=== PATIENT | male | born 1990 | race Caucasian/White ===

== ENCOUNTER 2021-02-10 07:22 | Emergency (ER) | payer MEDICARE, MEDICAID ==
[~2021-02-10] VITALS: Ht 188 cm; Wt 154.6 kg
[2021-02-10 07:46] VITALS: BP 100/79
[2021-02-10] MEDS ORDERED: LIDOcaine 1% W/epiNEPHrine 1:200,000 10ml vial IJ ONE (11:25)
[2021-02-10] MEDS ORDERED: LIDOcaine 1% w/epiNEPHrine 1:200,000 30ml vial SQ ONE (12:05)
[2021-02-10] MEDS ORDERED: CEPH250T PO (12:31)
[2021-02-10] MEDS ORDERED: DOXY100C76 PO (12:31)
== END 2021-02-10 13:06 | disposition home or self-care (01) ==
LOC: ER 07:23
DX: L02.214 Cutaneous abscess of groin (principal); L03.314 Cellulitis of groin; Z88.2 Allergy status to sulfonamides; Z79.2 Long term (current) use of antibiotics
CPT/HCPCS: 10060; 99283

== ENCOUNTER 2022-09-18 17:23 | Inpatient (IN) | payer MEDICARE, MEDICAID ==
[~2022-09-18] VITALS: Ht 190.5 cm; Wt 134.0 kg
[2022-09-18 18:18] LABS: BASOPHILS % (AUTO) 0.3 % (0-1); EOSINOPHILS # (AUTO) 0.1 X10'3 (0-0.9); EOSINOPHILS % (AUTO) 0.5 % (0-6); HEMATOCRIT 50.3 % (42.0-52.0); HEMOGLOBIN 16.6 g/dl (14.0-17.9); LYMPHOCYTES # (AUTO) 1.7 X10'3 (1.1-4.8); LYMPHOCYTES % (AUTO) 15.6 % (21-51); MEAN CORPUSCULAR HGB CONC 33.1 g/dL (33.0-36.5); MEAN CORPUSCULAR VOLUME 87.6 FL (78-98); MEAN PLATELET VOLUME 8.6 FL (7.4-10.4); MONOCYTES # (AUTO) 1.6 X10'3 (0-0.9); MONOCYTES % (AUTO) 14.1 % (2-12); NEUTROPHILS # (AUTO) 7.7 X10'3 (1.8-7.7); NEUTROPHILS % (AUTO) 69.5 % (42-75); PLATELET COUNT 353 X10'3 (140-440); RED BLOOD COUNT 5.74 X10'6 (4.70-6.10); WHITE BLOOD COUNT 11.1 X10'3 (4.5-11.0)
[2022-09-18 18:35] LABS: ALANINE AMINOTRANSFERASE 36 U/L (12-78); ALBUMIN/GLOBULIN RATIO 0.5 (1.1-1.5); ALKALINE PHOSPHATASE 111 IU/L (46-116); ANION GAP 24 (8-16); ASPARTATE AMINO TRANSFERASE 17 U/L (10-37); BILIRUBIN,TOTAL 0.7 MG/DL (0.1-1.0); BLOOD UREA NITROGEN 12 MG/DL (7-18); BUN/CREATININE RATIO 8.7 (10.0-20.0); CALCIUM 10.3 MG/DL (8.5-10.1); CHLORIDE 99 MMOL/L (99-107); CREATININE 1.38 MG/DL (0.60-1.10); GLUCOSE 411 MG/DL (70-104); POTASSIUM 3.9 MMOL/L (3.5-5.1); SODIUM 133 MMOL/L (135-145); TOTAL PROTEIN 8.9 G/DL (6.4-8.2); eGFR 60 ML/MIN
[2022-09-18 18:47] LABS: TOTAL CARBON DIOXIDE 9.8 MMOL/L (24-32)
[2022-09-18] MEDS ORDERED: acetaminophen 325mg tablet PO ONE (18:55)
[2022-09-18] MEDS ORDERED: iohexol 300mg/ml 100ml inj. ONE (19:11)
[2022-09-18] MEDS ORDERED: CefTRIAXone/D5W-Rocephin 1gm 50 ML IV ONE (19:25)
[2022-09-18] MEDS ORDERED: sodium bicarbonate (8.4%) inj. 50 MEQ in dextrose 5% water 500ml 250 ML IV PRN (19:35)
[2022-09-18] MEDS ORDERED: sodium phosphate inj. 30 MMOL in dextrose 5%-water 250 ML IV PRN (19:35)
[2022-09-18] MEDS ORDERED: sodium phosphate inj. 15 MMOL in dextrose 5%-water 250 ML IV PRN (19:35)
[2022-09-18] MEDS ORDERED: Insulin Reg/NS 100units/100mL 100 ML IV SCH ×2 (19:35→20:30)
[2022-09-18] MEDS ORDERED: Neutra Phos packet PO PRN (19:35)
[2022-09-18] MEDS ORDERED: sodium bicarbonate (8.4%) inj. 100 MEQ in dextrose 5% water 500ml 500 ML IV PRN (19:35)
[2022-09-18] MEDS ORDERED: potassium Cl 40MEQ/1/2NS 520ml 520 ML IV ONE (19:35)
[2022-09-18] MEDS ORDERED: potassium Cl 40MEQ/1/2NS 520ml 520 ML IV PRN ×3 (19:35→20:20)
[2022-09-18] MEDS ORDERED: potassium Cl 20 mEq SR tablet PO PRN ×2 (19:35)
[2022-09-18] MEDS ORDERED: VANCOmycin 1250MG/NS 250ml Bag 250 ML IV ONE ×2 (19:45→20:47)
[2022-09-18] MEDS: normal saline 1000ml 1,000 ML IV SCH ×2 (19:48→20:05)
[2022-09-18] MEDS: K and/or MAG REPLACEMENT MC SCH (20:00)
[2022-09-18] MEDS ORDERED: bisacodyl 10mg suppository rectal RC PRN (20:20)
[2022-09-18] MEDS ORDERED: magnesium 4gm in 100ml NS 100 ML IV PRN (20:20)
[2022-09-18] MEDS ORDERED: ondansetron/PF 4mg/2ml inj IV PRN (20:20)
[2022-09-18] MEDS ORDERED: magnesium 2GM in 50ml NS 50 ML IV PRN (20:20)
[2022-09-18] MEDS ORDERED: mag hydrox/Alum hydrox/simeth 30ml oral suspension PO PRN (20:20)
[2022-09-18] MEDS ORDERED: HYDROcodone/acetaminophen 5mg/325mg tablet PO PRN (20:20)
[2022-09-18] MEDS ORDERED: acetaminophen 325mg tablet PO PRN (20:20)
[2022-09-18] MEDS ORDERED: magnesium hydroxide 30ml (MOM) UD suspension PO PRN (20:20)
[2022-09-18] MEDS ORDERED: magnesium Cl slow-release 64mg tablet PO PRN ×2 (20:20)
[2022-09-18] MEDS ORDERED: diphenhydrAMINE 50 mg/ml inj IV PRN (20:20)
[2022-09-18] MEDS ORDERED: diphenhydrAMINE 25mg capsule PO PRN (20:20)
[2022-09-18] MEDS ORDERED: metoclopramide 5 mg/ml inj IV PRN (20:20)
[2022-09-18] MEDS ORDERED: morphine 2 MG/ML inj. syringe IV PRN ×2 (20:20)
[2022-09-18] MEDS ORDERED: HYDROmorphone inj. 0.5 MG/0.5 ML DISP.SYRIN IV PRN (20:20)
[2022-09-18] MEDS: potassium Cl 20mEq in NS 1,000 ML IV SCH (20:20)
[2022-09-18] MEDS ORDERED: acetaminophen 650mg rectal suppository RC PRN (20:20)
[2022-09-18] MEDS ORDERED: HYDROcodone/acetaminophen 10/325mg tab PO PRN (20:20)
[2022-09-18] MEDS ORDERED: dextrose 50%-water 50ml dispensing syringe IV PRN (20:30)
[2022-09-18] MEDS ORDERED: VANCOmycin 1250MG/NS 250ml Bag 250 ML IV SCH (20:45)
[2022-09-18 21:00] LABS: ANION GAP 23 (8-16); BLOOD UREA NITROGEN 12 MG/DL (7-18); CALCIUM 10.2 MG/DL (8.5-10.1); CHLORIDE 97 MMOL/L (99-107); GLUCOSE 390 MG/DL (70-104); PHOSPHORUS 2.5 MG/DL (2.3-4.5); SODIUM 134 MMOL/L (135-145); eGFR 54 ML/MIN
[2022-09-18] MEDS ORDERED: temazepam 15mg capsule PO PRN (21:00)
[2022-09-18] MEDS: pantoprazole 40MG/NS 100ML BAG 100 ML IV SCH (21:00)
[2022-09-18] MEDS ORDERED: LIDOCAINE 2%/EPI 1:100,000 inj. Multi-dose 20 ML VIAL SQ ONE (21:10)
[2022-09-18 21:11] LABS: CREATINE KINASE 34 U/L (39-308); LIPASE 106 U/L (73-393)
[2022-09-18 21:13] LABS: HEMOGLOBIN A1C 11.9 % (4.5-6.2)
[2022-09-18 21:15] LABS: APTT 29 SECONDS (22-32)
[2022-09-18] MEDS ORDERED: DOXY-224 PO (21:48)
[2022-09-18] MEDS ORDERED: ARIP15TA3 PO (21:48)
[2022-09-18] MEDS ORDERED: LOSA50TA64 PO (21:48)
[2022-09-18] MEDS ORDERED: CHOL500050 PO (21:48)
--- NOTE | 2022-09-18 22:00 | NUR ---
PATIENT PLACED ON A HOSPITAL BED
[2022-09-18 22:04] LABS: CLARITY,URINE CLEAR (Clear); COLOR,URINE YELLOW (Yellow); GLUCOSE, URINE 500 mg/dl (Neg); KETONES,URINE >=80 mg/dl (Neg); LEUKOCYTE ESTERASE ,URINE NEGATIVE (Neg); NITRITES, URINE NEGATIVE (Neg); OCCULT BLOOD,URINE TRACE-INTACT (Neg); PROTEIN,URINE 30 mg/dl (Neg); UROBILINOGEN,URINE 0.2 E.U/dL (0.2-1.0)
[2022-09-18 22:08] LABS: UA COLLECTION TYPE CLN CATCH MIDSTREAM
[2022-09-18 22:09] LABS: SQUAMOUS EPITHELIAL CELL,UR NONE SEEN /LPF (FEW)
[2022-09-18 22:10] LABS: BACTERIA,URINE NONE SEEN /HPF (Neg); RBC,URINE 0-2 /HPF (0-2); WBC,URINE 0-4 /HPF (0-4)
[2022-09-18 22:16] LABS: URINE AMPHETAMINE SCREEN NEGATIVE (Neg); URINE BARBITUATE SCREEN NEGATIVE (Neg); URINE BENZODIAZEPINES SCREEN NEGATIVE (Neg); URINE CANNABINOID SCREEN NEGATIVE (Neg); URINE COCAINE SCREEN NEGATIVE (Neg); URINE METHADONE SCREEN NEGATIVE (Neg); URINE OPIATE SCREEN NEGATIVE (Neg); URINE PHENCYCLIDINE SCREEN NEGATIVE (Neg)
[2022-09-19] MEDS ORDERED: dextrose 5%-1/2 normal saline 1,000 ML IV ONE (00:10)
[2022-09-19 00:12] LABS: ALBUMIN 2.4 G/DL (3.4-5.0); ANION GAP 18 (8-16); BLOOD UREA NITROGEN 11 MG/DL (7-18); BUN/CREATININE RATIO 8.7 (10.0-20.0); CALCIUM 8.7 MG/DL (8.5-10.1); CHLORIDE 102 MMOL/L (99-107); CREATININE 1.27 MG/DL (0.60-1.10); GLUCOSE 276 MG/DL (70-104); PHOSPHORUS 1.7 MG/DL (2.3-4.5); POTASSIUM 4.3 MMOL/L (3.5-5.1); SODIUM 135 MMOL/L (135-145); eGFR 66 ML/MIN
[2022-09-19 00:17] LABS: TOTAL CARBON DIOXIDE 14.6 MMOL/L (24-32)
[2022-09-19] MEDS: piperacillin/tazo 4.5gm/100ml 100 ML IV SCH ×3 (01:29→16:27)
[2022-09-19 03:42] LABS: BASOPHILS % (AUTO) 0.4 % (0-1); EOSINOPHILS # (AUTO) 0.1 X10'3 (0-0.9); EOSINOPHILS % (AUTO) 1.1 % (0-6); HEMATOCRIT 41.2 % (42.0-52.0); LYMPHOCYTES # (AUTO) 1.2 X10'3 (1.1-4.8); LYMPHOCYTES % (AUTO) 15.9 % (21-51); MEAN CORPUSCULAR HEMOGLOBIN 29.3 PG (27.0-31.0); MEAN CORPUSCULAR HGB CONC 33.8 g/dL (33.0-36.5); MEAN CORPUSCULAR VOLUME 86.5 FL (78-98); MONOCYTES # (AUTO) 1.2 X10'3 (0-0.9); MONOCYTES % (AUTO) 15.4 % (2-12); NEUTROPHILS # (AUTO) 5.2 X10'3 (1.8-7.7); NEUTROPHILS % (AUTO) 67.2 % (42-75); PLATELET COUNT 252 X10'3 (140-440); RED BLOOD COUNT 4.77 X10'6 (4.70-6.10); RED CELL DISTRIBUTION WIDTH 14.9 % (11.5-14.5); WHITE BLOOD COUNT 7.8 X10'3 (4.5-11.0)
[2022-09-19 04:03] LABS: ALANINE AMINOTRANSFERASE 25 U/L (12-78); ALBUMIN 2.2 G/DL (3.4-5.0); ALBUMIN/GLOBULIN RATIO 0.5 (1.1-1.5); ALKALINE PHOSPHATASE 80 IU/L (46-116); ANION GAP 13 (8-16); ASPARTATE AMINO TRANSFERASE 14 U/L (10-37); BILIRUBIN,TOTAL 0.5 MG/DL (0.1-1.0); BLOOD UREA NITROGEN 10 MG/DL (7-18); BUN/CREATININE RATIO 8.1 (10.0-20.0); CALCIUM 8.7 MG/DL (8.5-10.1); CHLORIDE 102 MMOL/L (99-107); CHOL/HDL RATIO 4.6 (0.00-4.99); CHOLESTEROL 166 MG/DL (0-200); CREATININE 1.23 MG/DL (0.60-1.10); GLUCOSE 236 MG/DL (70-104); HDL CHOLESTEROL 36 MG/DL (35-60); LDL CHOLESTEROL 99 MG/DL (50-100); MAGNESIUM 1.7 MG/DL (1.5-2.4); PHOSPHORUS 1.9 MG/DL (2.3-4.5); POTASSIUM 3.4 MMOL/L (3.5-5.1); SODIUM 134 MMOL/L (135-145); TOTAL PROTEIN 6.7 G/DL (6.4-8.2); TRIGLYCERIDES 118 MG/DL (20-135); eGFR 68 ML/MIN
[2022-09-19 04:09] LABS: TOTAL CELLS COUNTED 100
[2022-09-19 04:10] LABS: PLATELET ESTIMATE NORMAL
[2022-09-19] MEDS ORDERED: MESSAGE TO PHARMACY PO ONE (04:40)
[2022-09-19] MEDS ORDERED: DEXTROSE 15 GM of carb/4 tabs (each vial/BOTTLE has 4 tablets) PO PRN ×4 (04:40→08:55)
[2022-09-19] MEDS ORDERED: glucagon, human recombinant 1mg kit SUBCUT PRN ×2 (04:40→08:55)
[2022-09-19] MEDS ORDERED: dextrose 50%-water 50ml dispensing syringe IV PRN ×4 (04:40→08:55)
[2022-09-19 07:48] VITALS: BP 126/62
--- NOTE | 2022-09-19 07:50 | NUR ---
Patient in room U 3018. I have received report from Bashir SNYDER and had the opportunity to ask questions and assume patient care.bedside report completed. Pt orientated to room. Call light in reach. Addendum: 09/19/22 at 0750 by Joie Proctor RN Amended: Links added.
[2022-09-19] MEDS: K and/or MAG REPLACEMENT MC SCH ×4 (08:00→20:00)
[2022-09-19] MEDS: docusate sod 100mg capsule PO SCH ×2 (08:00→19:35)
[2022-09-19] MEDS ORDERED: VANCOmycin 1250MG/NS 250ml Bag 250 ML IV SCH (09:00)
[2022-09-19] MEDS: insulin Lispro (HumaLOG) vial - multi-dose SQ SCH ×3 (09:12→19:34)
[2022-09-19] MEDS: pantoprazole 40MG/NS 100ML BAG 100 ML IV SCH (09:13)
[2022-09-19] MEDS: vancomycin/NS 1 GM ADD-VANTAGE 250 ML IV SCH ×3 (09:37→23:17)
--- NOTE | 2022-09-19 09:52 | NUR ---
DM consult: Per H&P pt admit for right gluteal/scrotal abscess/cellulitis, DKA with new onset T2DM, and MELE with hyponatremia. Current A1c is 11.9%. Pt just admit to the floor this morning and to get and I&D of the abscess per H&P. Pt would benefit from DM education once appropriate. Diet has been advanced to CHO controlled, pending documentation of PO intake. No documented BM, pt receiving routine bowel care. Will continue to follow closely. Recommendations: 1) Continue CHO controlled diet 2) Monitor need for ONS/additional protein 3) Routine bowel care 4) Scaled weight this admit; subsequent weekly scaled weights 5) DM education as appropriate; with DKA and new onset T2DM on admit with A1c 11.9% Addendum: 09/19/22 at [address] Amended: Links added.
[2022-09-19 11:00] VITALS: BP 122/61
[2022-09-19] MEDS ORDERED: HYDROcodone/acetaminophen 5mg/325mg tablet PO PRN (13:10)
--- NOTE | 2022-09-19 13:10 | NUR ---
DM consult: Patient's A1c has already been addressed, please see prior RD note. Addendum: 09/19/22 at [address] Amended: Links added.
[2022-09-19] MEDS: HYDROcodone/acetaminophen 10/325mg tab PO PRN ×2 (14:08→19:35)
[2022-09-19] MEDS: potassium Cl 20mEq in NS 1,000 ML IV SCH ×2 (14:37→16:20)
[2022-09-19 15:43] VITALS: BP 117/59
[2022-09-19] MEDS: acetaminophen 325mg tablet PO PRN (16:43)
[2022-09-19 18:00] VITALS: BP 122/60
--- NOTE | 2022-09-19 18:20 | NUR ---
Patient in room PCU 3018. I have received report from Joie SNYDER and had the opportunity to ask questions and assume patient care.
--- NOTE | 2022-09-19 18:30 | NUR ---
Problems reprioritized. Patient report given, questions answered & plan of care reviewed with Sandra SNYDER. Bedside report completed. Pt eating and watching TV. Call light in reach. Addendum: 09/19/22 at 1831 by Joie Proctor RN Amended: Links added.
[2022-09-19] MEDS: insulin glargine (Lantus) pen - multi-dose SQ SCH ×2 (21:00→21:49)
[2022-09-19 22:00] VITALS: BP 114/61
[2022-09-19] MEDS: losartan 50mg tablet PO SCH (22:02)
[2022-09-19] MEDS: ARIPIPRAZOLE 15 MG TABLET PO SCH (22:04)
[2022-09-20] VITALS (10 sets, daily range): BP systolic 91–136; BP diastolic 43–80
[2022-09-20] MEDS: piperacillin/tazo 4.5gm/100ml 100 ML IV SCH ×2 (02:34→07:13)
[2022-09-20] MEDS: potassium Cl 20mEq in NS 1,000 ML IV SCH ×3 (02:58→23:29)
--- NOTE | 2022-09-20 03:48 | NUR ---
REVIEWED YARD DRIVER ASSESSMENT AND IN AGREEMENT.
--- NOTE | 2022-09-20 06:15 | NUR ---
Patient in room PCU 3018. I have received report from Sandra FARMER and had the opportunity to ask questions and assume patient care. Bedside report completed. Pt denies needs. Call light in reach. Addendum: 09/20/22 at 0636 by Joie Proctor RN Amended: Links added.
--- NOTE | 2022-09-20 06:19 | NUR ---
Problems reprioritized. Patient report given, questions answered & plan of care reviewed with Joie SNYDER.
[2022-09-20] MEDS ORDERED: VANCOMYCIN LEVEL IV ONE (06:30)
[2022-09-20 07:10] LABS: BASOPHILS % (AUTO) 0.5 % (0-1); EOSINOPHILS # (AUTO) 0.1 X10'3 (0-0.9); EOSINOPHILS % (AUTO) 2.4 % (0-6); HEMATOCRIT 36.8 % (42.0-52.0); HEMOGLOBIN 12.6 g/dl (14.0-17.9); LYMPHOCYTES # (AUTO) 1.4 X10'3 (1.1-4.8); LYMPHOCYTES % (AUTO) 24.1 % (21-51); MEAN CORPUSCULAR HEMOGLOBIN 29.2 PG (27.0-31.0); MEAN CORPUSCULAR HGB CONC 34.2 g/dL (33.0-36.5); MEAN CORPUSCULAR VOLUME 85.2 FL (78-98); MEAN PLATELET VOLUME 8.2 FL (7.4-10.4); MONOCYTES % (AUTO) 16.8 % (2-12); NEUTROPHILS # (AUTO) 3.2 X10'3 (1.8-7.7); NEUTROPHILS % (AUTO) 56.2 % (42-75); PLATELET COUNT 213 X10'3 (140-440); RED BLOOD COUNT 4.31 X10'6 (4.70-6.10); RED CELL DISTRIBUTION WIDTH 14.5 % (11.5-14.5); WHITE BLOOD COUNT 5.7 X10'3 (4.5-11.0)
[2022-09-20] MEDS: pantoprazole 40mg Tablet.DR PO SCH (07:11)
[2022-09-20] MEDS: HYDROcodone/acetaminophen 10/325mg tab PO PRN ×3 (07:11→22:16)
[2022-09-20] MEDS: cholecalciferol (vitamin D3) 1,000 unit (25mcg) tablet PO SCH (07:12)
[2022-09-20] MEDS: docusate sod 100mg capsule PO SCH ×2 (07:12→20:00)
[2022-09-20] MEDS: vancomycin/NS 1 GM ADD-VANTAGE 250 ML IV SCH (07:13)
[2022-09-20 07:22] LABS: ALANINE AMINOTRANSFERASE 21 U/L (12-78); ALBUMIN/GLOBULIN RATIO 0.5 (1.1-1.5); ALKALINE PHOSPHATASE 67 IU/L (46-116); ANION GAP 12 (8-16); ASPARTATE AMINO TRANSFERASE 25 U/L (10-37); BILIRUBIN,TOTAL 0.5 MG/DL (0.1-1.0); BLOOD UREA NITROGEN 7 MG/DL (7-18); CALCIUM 8.3 MG/DL (8.5-10.1); CHLORIDE 99 MMOL/L (99-107); CREATININE 0.87 MG/DL (0.60-1.10); GLUCOSE 251 MG/DL (70-104); MAGNESIUM 1.6 MG/DL (1.5-2.4); PHOSPHORUS 2.2 MG/DL (2.3-4.5); POTASSIUM 3.1 MMOL/L (3.5-5.1); SODIUM 133 MMOL/L (135-145); TOTAL CARBON DIOXIDE 22.1 MMOL/L (24-32); TOTAL PROTEIN 6.1 G/DL (6.4-8.2); VANCOMYCIN,TROUGH 7.5 UG/ML (6.0-14.0); eGFR > 90 ML/MIN
[2022-09-20] MEDS: K and/or MAG REPLACEMENT MC SCH ×4 (08:00→20:00)
[2022-09-20] MEDS: potassium Cl 20 mEq SR tablet PO PRN ×3 (08:39→23:23)
[2022-09-20] MEDS: insulin Lispro (HumaLOG) vial - multi-dose SQ SCH (08:41)
[2022-09-20 09:22] LABS: PLATELET ESTIMATE NORMAL; TOTAL CELLS COUNTED 100
[2022-09-20] MEDS ORDERED: LORazepam 1 MG tablet PO ONE (11:15)
--- NOTE | 2022-09-20 14:45 | NUR ---
Pt down to OR
[2022-09-20] MEDS ORDERED: dibucaine ointment 28gm RC ONE (15:41)
[2022-09-20] MEDS ORDERED: LIDOcaine 1% W/epiNEPHrine 1:100,000 20ml vial ONE (15:42)
[2022-09-20] MEDS ORDERED: ringers solution, lacted 1,000 ML IV SCH (16:25)
[2022-09-20] MEDS ORDERED: morphine 4 MG/ML inj SYRINge IV PRN (16:25)
[2022-09-20] MEDS ORDERED: hydrALAZINE 20mg/ml inj. IV PRN (16:25)
[2022-09-20] MEDS ORDERED: HYDROmorphone/PF 0.2 MG/ML SYRINGE IV PRN ×2 (16:25)
[2022-09-20] MEDS ORDERED: acetaminophen 1,000mg/100ml IV 100 ML IV PRN (16:25)
[2022-09-20] MEDS ORDERED: morphine 2 MG/ML inj. syringe IV PRN (16:25)
[2022-09-20] MEDS ORDERED: meperidine/PF 25mg/ml syringe IV PRN (16:25)
[2022-09-20] MEDS ORDERED: labetalol 20mg/4ml (5mg/ml) syringe IV PRN (16:25)
[2022-09-20] MEDS ORDERED: proCHLORperazine 10 MG/2 ml inj IV PRN (16:25)
[2022-09-20] MEDS ORDERED: ondansetron/PF 4mg/2ml inj IV PRN (16:25)
[2022-09-20] MEDS ORDERED: sevoflurane 250ml liquid IH ONE (16:32)
[2022-09-20] MEDS ORDERED: ondansetron/PF 4mg/2ml inj ONE (16:32)
[2022-09-20] MEDS: VANCOMYCIN 1,500MG in normal saline IV soln 300 ML IV SCH ×2 (16:36→23:25)
[2022-09-20] MEDS ORDERED: midazolam 1 mg/ML 2ml injection ONE (16:39)
[2022-09-20] MEDS ORDERED: fentaNYL /PF 50mcg/ml 5ml ampule ONE (16:40)
[2022-09-20] MEDS ORDERED: rocuronium 10mg/ml inj IV ONE (17:05)
[2022-09-20] MEDS ORDERED: succinylcholine 20mg/ml inj IV ONE (17:05)
[2022-09-20] MEDS ORDERED: propofol inj 20 ML IV ONE ×2 (17:05)
[2022-09-20] MEDS ORDERED: LIDOcaine 1%/PF 5ML 10 MG/ML VIAL ONE ×2 (17:05)
[2022-09-20] MEDS ORDERED: albuterol 60 PUFF/8GM Inhaler (90mcg/1 puff) IH ONE (17:20)
--- NOTE | 2022-09-20 17:24 | NUR ---
Received from OR via MED SURG BED , accompanied by Anesthesiologist JULEE and report given by Anesthesiolgist. PATIENT WITH 20G PIV IN LEFT UE AND 22G PIV IN RIGHT UE THAT IS SL. DRESSING UNDER MESH PANTIES PRESENT WITH NO DRAINAGE PRESENT AT THIS TIME. DENIES PAIN. Addendum: 09/20/22 at 1743 by Grady Jarrett RN, RN Amended: Links added.
--- NOTE | 2022-09-20 18:14 | NUR ---
PATIENT VSS. PAIN "TOLERABLE' ACCORDING TO PT. DRESSING WITH MESH UNDERWEAR WITH GAUZE PRESENT, SHADOWING ON DRESSING. PATIENT TRANSPORTED IN BED. LILLIAN CAMPOVERDE PRESENT TO ACCEPT CARE OF PATIENT. CALL LIGHT PRESENT AND POSITIONED TO COMFORT. Addendum: 09/20/22 at 1821 by Grady Jarrett RN, RN Amended: Links added.
--- NOTE | 2022-09-20 18:30 | NUR ---
Problems reprioritized. Patient report given, questions answered & plan of care reviewed with Rhonda SNYDER. Pt eating dinner.. Addendum: 09/20/22 at 1852 by Joie Proctor RN Amended: Links added.
[2022-09-20] MEDS: heparin, porcine 5000 units/ml vial SQ SCH (20:00)
[2022-09-20] MEDS: insulin glargine (Lantus) pen - multi-dose SQ SCH ×2 (21:00→22:34)
[2022-09-20] MEDS: losartan 50mg tablet PO SCH (21:00)
[2022-09-20] MEDS: ARIPIPRAZOLE 15 MG TABLET PO SCH (22:16)
[2022-09-21] VITALS (7 sets, daily range): BP systolic 111–147; BP diastolic 73–86
[2022-09-21] MEDS: piperacillin/tazo 4.5gm/100ml 100 ML IV SCH ×2 (00:57→09:59)
[2022-09-21] MEDS: potassium Cl 20 mEq SR tablet PO PRN ×3 (04:42→18:52)
--- NOTE | 2022-09-21 05:00 | NUR ---
Pt. is awake alert oriented talkative S/p I/D to right buttock. Dressing is saturated with bright red drainage. Reinforced dressing as needed. Peripheral pedal pulses palpable SCDs placed. Pt. has 2 peripheral IVs. NS plus 20 kcl infusing. Pt. is eating and tolerating po fluids will decrease IV fluid rate. Medicated for pain as needed. States buttock feels much better post operatively. Pt. voids per urinal lizzy clear mod amt. Plan monitor dressing for increased drainage.
[2022-09-21 07:13] LABS: BASOPHILS % (AUTO) 0.5 % (0-1); EOSINOPHILS # (AUTO) 0.2 X10'3 (0-0.9); EOSINOPHILS % (AUTO) 2.8 % (0-6); HEMATOCRIT 36.8 % (42.0-52.0); HEMOGLOBIN 12.6 g/dl (14.0-17.9); LYMPHOCYTES # (AUTO) 1.4 X10'3 (1.1-4.8); LYMPHOCYTES % (AUTO) 26.5 % (21-51); MEAN CORPUSCULAR HGB CONC 34.1 g/dL (33.0-36.5); MEAN PLATELET VOLUME 7.9 FL (7.4-10.4); MONOCYTES % (AUTO) 18.7 % (2-12); NEUTROPHILS # (AUTO) 2.8 X10'3 (1.8-7.7); NEUTROPHILS % (AUTO) 51.5 % (42-75); PLATELET COUNT 220 X10'3 (140-440); RED BLOOD COUNT 4.33 X10'6 (4.70-6.10); RED CELL DISTRIBUTION WIDTH 14.5 % (11.5-14.5); WHITE BLOOD COUNT 5.4 X10'3 (4.5-11.0)
[2022-09-21 07:29] LABS: ALANINE AMINOTRANSFERASE 21 U/L (12-78); ALBUMIN/GLOBULIN RATIO 0.5 (1.1-1.5); ALKALINE PHOSPHATASE 67 IU/L (46-116); ANION GAP 10 (8-16); ASPARTATE AMINO TRANSFERASE 26 U/L (10-37); BILIRUBIN,TOTAL 0.4 MG/DL (0.1-1.0); BLOOD UREA NITROGEN 8 MG/DL (7-18); BUN/CREATININE RATIO 9.6 (10.0-20.0); CALCIUM 8.6 MG/DL (8.5-10.1); CHLORIDE 100 MMOL/L (99-107); CREATININE 0.83 MG/DL (0.60-1.10); GLUCOSE 207 MG/DL (70-104); MAGNESIUM 1.7 MG/DL (1.5-2.4); SODIUM 138 MMOL/L (135-145); TOTAL CARBON DIOXIDE 28.1 MMOL/L (24-32); TOTAL PROTEIN 6.2 G/DL (6.4-8.2); eGFR > 90 ML/MIN
[2022-09-21] MEDS: VANCOMYCIN 1,500MG in normal saline IV soln 300 ML IV SCH ×2 (07:29→15:12)
[2022-09-21] MEDS: K and/or MAG REPLACEMENT MC SCH ×3 (08:00→20:07)
[2022-09-21] MEDS: potassium Cl 20mEq in NS 1,000 ML IV SCH ×2 (08:20→18:51)
--- NOTE | 2022-09-21 08:24 | NUR ---
Paged Page Sent PAGER ID: [phone] MESSAGE: [id number]- Rodrigo- Pt K 3.0 this morning. Yesterday 3.1. Pt currently on KCL 20MEQ/1000ml. Do you want to continue current KCL order? Kleber Osorio LVN
[2022-09-21] MEDS: cholecalciferol (vitamin D3) 1,000 unit (25mcg) tablet PO SCH (09:00)
[2022-09-21] MEDS: docusate sod 100mg capsule PO SCH ×2 (09:00→20:00)
[2022-09-21] MEDS: heparin, porcine 5000 units/ml vial SQ SCH ×2 (09:03→20:09)
[2022-09-21] MEDS: insulin Lispro (HumaLOG) vial - multi-dose SQ SCH ×2 (09:07→13:50)
[2022-09-21] MEDS: pantoprazole 40mg Tablet.DR PO SCH (09:21)
[2022-09-21] MEDS: HYDROcodone/acetaminophen 10/325mg tab PO PRN (12:11)
[2022-09-21 13:13] LABS: HBSAG SCREEN Negative (Negative); HEP B CORE AB, TOT Negative (Negative)
--- NOTE | 2022-09-21 13:17 | NUR ---
F/u: Attempted visit with pt at bedside for DM education however pt unavailable. Will attempt education at another time. Addendum: 09/21/22 at [address] Amended: Links added.
[2022-09-21] MEDS: ondansetron 4mg rapidly disintigrating tab PO PRN ×2 (13:45→20:10)
--- NOTE | 2022-09-21 13:56 | NUR ---
Wound reinforced with 4x4 gauze and abd pad. Addendum: 09/21/22 at 1357 by Kleber Osorio LVN Amended: Links added.
[2022-09-21] MEDS ORDERED: VANCOMYCIN LEVEL IV ONE (14:30)
[2022-09-21] MEDS: ceFAZolin/D5W- 1GM premix 50 ML IV SCH ×2 (16:37→23:13)
--- NOTE | 2022-09-21 18:36 | NUR ---
Problems reprioritized. Patient report given, questions answered & plan of care reviewed with Rhonda RN.
--- NOTE | 2022-09-21 18:51 | NUR ---
RESORT KEEPER II documentation: I have reviewed and agree WITH THE assessment documented by MARLENY COREA II.
[2022-09-21] MEDS: losartan 50mg tablet PO SCH (20:09)
[2022-09-21] MEDS: ARIPIPRAZOLE 15 MG TABLET PO SCH (20:09)
[2022-09-21] MEDS: insulin glargine (Lantus) pen - multi-dose SQ SCH (21:51)
[2022-09-21] MEDS ORDERED: vancomycin 1,750 MG in NS 350ml IV soln IV SCH (23:00)
[2022-09-22 03:00] VITALS: BP 134/83
--- NOTE | 2022-09-22 04:25 | NUR ---
Pt. is awake alert oriented and in good sp Addendum: 09/22/22 at 0433 by Khadijah Muir RN Pt. is awake alert oriented and in good spirits. No c/o pain today. Pt. has 2 peripheral IV/SL NS KCL infusing well. Pt. c/o increasingly swollen legs SCDs applied. Pt. is taking po fluids, po potassium and nutrition well. Pt. voids per urinal yellow clear. Right groin wound dressing is dry and intact. Left buttock I/D site with packing intact, incision appears smaller today. Reinforced dressing as needed. Firm warm areas noted at left buttock and frenulum. Plan for potential wound vac or incision protector.
--- NOTE | 2022-09-22 06:59 | NUR ---
Patient in room PCU 3018. I have received report from Khadijah Ivy and had the opportunity to ask questions and assume patient care. Pt awake and in bed. No signs of distress. Call light within reach. BLL.
--- NOTE | 2022-09-22 07:01 | NUR ---
Patient in room PCU 3018J. I have received report from Rhonda SNYDER and had the opportunity to ask questions and assume patient care. Pt laying on R side of body watching TV. Pt on RA. No s/s of distress, or c/o pain. Pt reciving K 20meq in 1000ml running @ 100ml/hr. NO c/o pain to the site. BLL, call light within reach, frequently used items in reach, frequent rounding, soda column operator socks on. Will continue to monitor.
[2022-09-22 07:02] LABS: ALANINE AMINOTRANSFERASE 24 U/L (12-78); ALBUMIN/GLOBULIN RATIO 0.4 (1.1-1.5); ALKALINE PHOSPHATASE 65 IU/L (46-116); ANION GAP 9 (8-16); ASPARTATE AMINO TRANSFERASE 41 U/L (10-37); BILIRUBIN,TOTAL 0.4 MG/DL (0.1-1.0); BLOOD UREA NITROGEN 5 MG/DL (7-18); BUN/CREATININE RATIO 8.5 (10.0-20.0); CALCIUM 8.9 MG/DL (8.5-10.1); CHLORIDE 102 MMOL/L (99-107); CREATININE 0.59 MG/DL (0.60-1.10); GLUCOSE 217 MG/DL (70-104); MAGNESIUM 1.8 MG/DL (1.5-2.4); POTASSIUM 3.4 MMOL/L (3.5-5.1); SODIUM 139 MMOL/L (135-145); TOTAL CARBON DIOXIDE 28.2 MMOL/L (24-32); TOTAL PROTEIN 6.6 G/DL (6.4-8.2); eGFR > 90 ML/MIN
[2022-09-22 07:04] LABS: BASOPHILS % (AUTO) 0.5 % (0-1); EOSINOPHILS # (AUTO) 0.1 X10'3 (0-0.9); EOSINOPHILS % (AUTO) 2.6 % (0-6); HEMOGLOBIN 12.6 g/dl (14.0-17.9); LYMPHOCYTES # (AUTO) 1.5 X10'3 (1.1-4.8); LYMPHOCYTES % (AUTO) 27.5 % (21-51); MEAN CORPUSCULAR HEMOGLOBIN 28.8 PG (27.0-31.0); MEAN CORPUSCULAR VOLUME 84.6 FL (78-98); MEAN PLATELET VOLUME 8.4 FL (7.4-10.4); MONOCYTES % (AUTO) 17.5 % (2-12); NEUTROPHILS # (AUTO) 2.9 X10'3 (1.8-7.7); NEUTROPHILS % (AUTO) 51.9 % (42-75); PLATELET COUNT 219 X10'3 (140-440); RED BLOOD COUNT 4.37 X10'6 (4.70-6.10); RED CELL DISTRIBUTION WIDTH 14.3 % (11.5-14.5); WHITE BLOOD COUNT 5.6 X10'3 (4.5-11.0)
[2022-09-22] MEDS: heparin, porcine 5000 units/ml vial SQ SCH ×2 (07:43→19:25)
[2022-09-22 07:44] VITALS: BP 135/85
[2022-09-22] MEDS: docusate sod 100mg capsule PO SCH ×2 (07:46→19:24)
[2022-09-22] MEDS: cholecalciferol (vitamin D3) 1,000 unit (25mcg) tablet PO SCH (07:47)
[2022-09-22] MEDS: pantoprazole 40mg Tablet.DR PO SCH (07:47)
[2022-09-22] MEDS: ceFAZolin/D5W- 1GM premix 50 ML IV SCH ×2 (07:48→17:38)
[2022-09-22] MEDS: potassium Cl 20mEq in NS 1,000 ML IV SCH ×2 (07:49→17:28)
[2022-09-22] MEDS: K and/or MAG REPLACEMENT MC SCH ×2 (08:00→19:12)
[2022-09-22 08:28] LABS: TOTAL CELLS COUNTED 100
[2022-09-22 08:29] LABS: PLATELET ESTIMATE NORMAL; POLYCHROMASIA FEW; TOXIC GRANULATION 1+
[2022-09-22] MEDS: insulin Lispro (HumaLOG) vial - multi-dose SQ SCH ×3 (09:29→14:20)
[2022-09-22] MEDS: HYDROcodone/acetaminophen 10/325mg tab PO PRN ×2 (09:36→17:28)
[2022-09-22 11:00] VITALS: BP 143/84
--- NOTE | 2022-09-22 11:31 | NUR ---
F/u 09/22: Pt seen by RD for written/verbal DM and verbal high protein diet eds w/ RD contact information provided. RD encouraged pt to contact dietitian's office if further nutrition questions/concerns. Pt advanced to carb controlled diet PO ~100% most initial meals s/p I&D R perirectal abscess 09/20 per EMR. Partially meeting estimated needs given large stature and wound healing. Pt is agreeable to peach Robb smoothie BIDBD for wound healing; notified. LBM 09/19 receiving routine colace. Will continue to follow. Recommendations: 1) Continue CHO controlled diet 2) Sanders Robb smoothie BIDBD for wound healing; pending physician verification in EMR 3) Routine bowel care 4) Scaled weight this admit; subsequent weekly scaled weights Addendum: 09/22/22 at [address] Amended: Links added.
[2022-09-22 15:00] VITALS: BP 139/79
--- NOTE | 2022-09-22 15:53 | NUR ---
PAGER ID: [phone] MESSAGE: Nik Wallace [id number] May I have an order for K replacement protocol? Odalys [id number]
[2022-09-22] MEDS ORDERED: JUVEN Smoothie Arginine/Glut./Ca2+Bmb (Juven 19.3pkt) 240ml cup PO SCH (17:30)
[2022-09-22] MEDS ORDERED: magnesium 4gm in 100ml NS 100 ML IV PRN (18:35)
[2022-09-22] MEDS ORDERED: potassium Cl 40MEQ/1/2NS 520ml 520 ML IV PRN (18:35)
[2022-09-22] MEDS ORDERED: potassium Cl 20 mEq SR tablet PO PRN ×2 (18:35)
--- NOTE | 2022-09-22 18:43 | NUR ---
Problems reprioritized. Patient report given, questions answered & plan of care reviewed with Ness SNYDER. Pt resting comfortably in bed. BLL. call light with in reach.
[2022-09-22] MEDS: ARIPIPRAZOLE 15 MG TABLET PO SCH (19:24)
[2022-09-22] MEDS: losartan 50mg tablet PO SCH (19:24)
[2022-09-22] MEDS: insulin glargine (Lantus) pen - multi-dose SQ SCH (21:00)
[2022-09-23] MEDS: potassium Cl 20mEq in NS 1,000 ML IV SCH ×2 (00:20→12:42)
[2022-09-23] MEDS: ceFAZolin/D5W- 1GM premix 50 ML IV SCH ×2 (00:51→07:31)
[2022-09-23] MEDS: HYDROcodone/acetaminophen 10/325mg tab PO PRN (00:52)
[2022-09-23] MEDS: acetaminophen 325mg tablet PO PRN (04:22)
[2022-09-23 04:27] LABS: BASOPHILS % (AUTO) 0.5 % (0-1); EOSINOPHILS # (AUTO) 0.2 X10'3 (0-0.9); EOSINOPHILS % (AUTO) 3.1 % (0-6); HEMATOCRIT 37.1 % (42.0-52.0); HEMOGLOBIN 12.6 g/dl (14.0-17.9); LYMPHOCYTES # (AUTO) 1.6 X10'3 (1.1-4.8); LYMPHOCYTES % (AUTO) 27.1 % (21-51); MEAN CORPUSCULAR HEMOGLOBIN 28.8 PG (27.0-31.0); MEAN CORPUSCULAR HGB CONC 33.8 g/dL (33.0-36.5); MEAN CORPUSCULAR VOLUME 85.2 FL (78-98); MEAN PLATELET VOLUME 8.1 FL (7.4-10.4); MONOCYTES % (AUTO) 17.6 % (2-12); NEUTROPHILS % (AUTO) 51.7 % (42-75); PLATELET COUNT 199 X10'3 (140-440); RED BLOOD COUNT 4.36 X10'6 (4.70-6.10); RED CELL DISTRIBUTION WIDTH 14.1 % (11.5-14.5); WHITE BLOOD COUNT 5.8 X10'3 (4.5-11.0)
[2022-09-23 04:53] LABS: ALANINE AMINOTRANSFERASE 27 U/L (12-78); ALBUMIN 2.1 G/DL (3.4-5.0); ALBUMIN/GLOBULIN RATIO 0.5 (1.1-1.5); ALKALINE PHOSPHATASE 63 IU/L (46-116); ANION GAP 6 (8-16); ASPARTATE AMINO TRANSFERASE 38 U/L (10-37); BILIRUBIN,TOTAL 0.3 MG/DL (0.1-1.0); BLOOD UREA NITROGEN 5 MG/DL (7-18); BUN/CREATININE RATIO 11.4 (10.0-20.0); CALCIUM 8.7 MG/DL (8.5-10.1); CHLORIDE 101 MMOL/L (99-107); CREATININE 0.44 MG/DL (0.60-1.10); GLUCOSE 213 MG/DL (70-104); POTASSIUM 3.2 MMOL/L (3.5-5.1); SODIUM 138 MMOL/L (135-145); TOTAL CARBON DIOXIDE 30.9 MMOL/L (24-32); TOTAL PROTEIN 6.3 G/DL (6.4-8.2); eGFR > 90 ML/MIN
--- NOTE | 2022-09-23 06:35 | NUR ---
Patient in room PCU 3018. I have received report from Ness SNYDER and had the opportunity to ask questions and assume patient care.Pt resting comfortably with no sign of distress. Iv infusing to left hand, K 0.9%NA at 100 ml/hr, no signs of infiltration. BLL. Call light with in reach.
[2022-09-23 07:00] VITALS: BP 131/89
[2022-09-23 07:01] LABS: TOTAL CELLS COUNTED 100
[2022-09-23 07:02] LABS: PLATELET ESTIMATE NORMAL
[2022-09-23] MEDS: pantoprazole 40mg Tablet.DR PO SCH (07:34)
[2022-09-23] MEDS: heparin, porcine 5000 units/ml vial SQ SCH (07:34)
[2022-09-23] MEDS: docusate sod 100mg capsule PO SCH (07:36)
[2022-09-23] MEDS: cholecalciferol (vitamin D3) 1,000 unit (25mcg) tablet PO SCH (07:36)
[2022-09-23] MEDS: K and/or MAG REPLACEMENT MC SCH (07:38)
[2022-09-23] MEDS: insulin Lispro (HumaLOG) vial - multi-dose SQ SCH ×2 (09:16→14:20)
[2022-09-23 11:00] VITALS: BP 140/67
[2022-09-23] MEDS ORDERED: AMOX-117 PO (11:09)
[2022-09-23] MEDS ORDERED: GLIP1TAB6 PO (11:09)
--- NOTE | 2022-09-23 14:51 | NUR ---
Pt stable for discharge. PIV from left wrist removed, intact. Tele box removed and returned. Wound care completed before discharge, pictures taken within 24 hours. Pt educated on discharge, new meds, upcoming appointments and home health services. Pt dressed himself and transfered to wheel chair. Pt wheeled out by staff to friends private vehicle for transport. All personal belongings taken with pt. Dressings clean, dry and intact. No distress noted.
--- NOTE | 2022-09-23 17:04 | NUR ---
Orientee documentation: I have reviewed and agree with all interventions, assessments performed and documented by LILLIAN Naik.
--- NOTE | 2022-09-23 17:26 | NUR ---
orientee Medication Administration: For this medication-pass time frame, all medication were reviewed, dispensed, administered and documented per hospital policy by LILLIAN Naik.
--- NOTE | 2022-09-23 18:37 | NUR ---
Student documentation: I have reviewed and agree with all interventions, assessments performed and documented by Piper.
--- NOTE | 2022-09-23 18:37 | NUR ---
Student Medication Administration: For this medication-pass time frame, all medication were reviewed, dispensed, administered and documented per hospital policy by Piper.
[2022-09-24] MEDS ORDERED: LEVO750T68 PO (01:50)
== END 2022-09-23 14:51 | disposition home health service (06) | DRG 356 ==
LOC: ER 17:24 → ED HOLD 20:27 → PCU 3S 09-19 07:25
PROVIDERS: ADMIT Family Medicine; ATTEND Family Medicine
PROC: 0Y950ZZ Drainage of Right Inguinal Region, Open Approach (ICD-10-PCS; principal; 2022-09-18)
PROC: 0Y950ZZ Drainage of Right Inguinal Region, Open Approach (ICD-10-PCS; 2022-09-18)
PROC: BW2G1ZZ Computerized Tomography (CT Scan) of Pelvic Region using Low Osmolar Contrast (ICD-10-PCS; 2022-09-18)
PROC: 0JBB0ZZ Excision of Perineum Subcutaneous Tissue and Fascia, Open Approach (ICD-10-PCS; 2022-09-20)
DX: K61.1 Rectal abscess (principal); E11.10 Type 2 diabetes mellitus with ketoacidosis without coma; N17.0 Acute kidney failure with tubular necrosis; L02.31 Cutaneous abscess of buttock; E87.1 Hypo-osmolality and hyponatremia; L02.214 Cutaneous abscess of groin; N17.9 Acute kidney failure, unspecified; L03.317 Cellulitis of buttock; E87.6 Hypokalemia; B95.4 Other streptococcus as the cause of diseases classified elsewhere; E11.22 Type 2 diabetes mellitus with diabetic chronic kidney disease; E66.9 Obesity, unspecified; I12.9 Hypertensive chronic kidney disease with stage 1 through stage 4 chronic kidney disease, or unspecified chronic kidney disease; N18.9 Chronic kidney disease, unspecified; Z88.2 Allergy status to sulfonamides; Z68.36 Body mass index [BMI] 36.0-36.9, adult; Z79.899 Other long term (current) drug therapy
CPT/HCPCS: 36415; 71045; 72192; 80048; 80053; 80061; 80202; 80305; 81001; 82009; 82550; 82800; 82948; 83036; 83605; 83690; 83735; 83880; 84100; 84145; 84484; 85007; 85025; 85610; 85730; 86704; 86705; 86706; 87040; 87070; 87077; 87081; 87186; 87340; 93005; 97116; 97161; 97530; 99285; A4349; A4618; A4649; A6212; A6213; A6253; A6258; A6266; A6446; A6449; A7000; C9113; G0378; J0330; J0690; J0696; J0780; J1170; J1644; J1815; J2250; J2405; J2543; J2704; J3010; J3370; J3480; J3490; J7030; J7040; J7060; J7120; Q9967

== ENCOUNTER 2022-09-24 00:32 | Emergency (ER) | payer MEDICARE, MEDICAID ==
[~2022-09-24] VITALS: Ht 190.5 cm; Wt 134.5 kg
[~2022-09-24 00:32] MED LIST: AMOX-117 PO; ARIP15TA3 PO; CHOL500050 PO; GLIP1TAB6 PO; LOSA50TA64 PO
[2022-09-24] MEDS ORDERED: acetaminophen 325mg tablet PO ONE (01:25)
[2022-09-24] MEDS ORDERED: normal saline 1000ml 1,000 ML IV ONE (01:25)
[2022-09-24] MEDS ORDERED: LEVO750T68 PO (01:50)
[2022-09-24 02:10] LABS: BASOPHILS % (AUTO) 0.6 % (0-1); EOSINOPHILS # (AUTO) 0.2 X10'3 (0-0.9); EOSINOPHILS % (AUTO) 2.6 % (0-6); HEMATOCRIT 37.9 % (42.0-52.0); HEMOGLOBIN 12.9 g/dl (14.0-17.9); LYMPHOCYTES # (AUTO) 1.7 X10'3 (1.1-4.8); LYMPHOCYTES % (AUTO) 29.3 % (21-51); MEAN CORPUSCULAR VOLUME 85.2 FL (78-98); MEAN PLATELET VOLUME 7.9 FL (7.4-10.4); MONOCYTES # (AUTO) 0.9 X10'3 (0-0.9); MONOCYTES % (AUTO) 15.3 % (2-12); NEUTROPHILS # (AUTO) 3.1 X10'3 (1.8-7.7); NEUTROPHILS % (AUTO) 52.2 % (42-75); PLATELET COUNT 200 X10'3 (140-440); RED BLOOD COUNT 4.45 X10'6 (4.70-6.10); RED CELL DISTRIBUTION WIDTH 14.1 % (11.5-14.5); WHITE BLOOD COUNT 5.9 X10'3 (4.5-11.0)
[2022-09-24 02:13] VITALS: BP 16/95
[2022-09-24 02:21] LABS: ALANINE AMINOTRANSFERASE 29 U/L (12-78); ALBUMIN 2.3 G/DL (3.4-5.0); ALBUMIN/GLOBULIN RATIO 0.5 (1.1-1.5); ALKALINE PHOSPHATASE 69 IU/L (46-116); ANION GAP 4 (8-16); ASPARTATE AMINO TRANSFERASE 35 U/L (10-37); BILIRUBIN,TOTAL 0.3 MG/DL (0.1-1.0); BLOOD UREA NITROGEN 5 MG/DL (7-18); BUN/CREATININE RATIO 8.3 (10.0-20.0); CALCIUM 8.6 MG/DL (8.5-10.1); CHLORIDE 101 MMOL/L (99-107); GLUCOSE 172 MG/DL (70-104); MAGNESIUM 1.5 MG/DL (1.5-2.4); POTASSIUM 3.1 MMOL/L (3.5-5.1); SODIUM 138 MMOL/L (135-145); TOTAL PROTEIN 6.5 G/DL (6.4-8.2); eGFR > 90 ML/MIN
== END 2022-09-24 02:17 | disposition home or self-care (01) ==
LOC: ER 00:33
DX: R19.7 Diarrhea, unspecified (principal); L03.317 Cellulitis of buttock; I10 Essential (primary) hypertension; E11.9 Type 2 diabetes mellitus without complications; Z88.2 Allergy status to sulfonamides
CPT/HCPCS: 36415; 80053; 83735; 85025; 99283